=== PATIENT | male | born 1995 | race African-American/Black ===

== ENCOUNTER 2019-02-05 22:24 | Emergency (ER) | payer OTHER ==
[~2019-02-05] VITALS: Ht 177.8 cm; Wt 138.8 kg
[2019-02-05 22:30] VITALS: Ht 177.8 cm; Wt 138.8 kg
[2019-02-05 23:50] LABS: BASOPHIL % 0.6 % (0-2); PLATELET COUNT 259 x10^3mcL (130-400); RED CELL DISTRIBUTION WIDTH 13.9 % (11.5-14.5)
[2019-02-06 00:40] VITALS: BP 146/86
[2019-02-06 00:43] LABS: ERYTHROCYTE SED RATE 29 mm/hr (0-15)
== END 2019-02-06 00:40 | disposition home or self-care (01) ==
LOC: ED 22:24
PROVIDERS: Emergency Medicine
DX: R51 Headache (principal)
CPT/HCPCS: 36415; J1885